=== PATIENT | male | born 1960 | race Caucasian/White ===

== ENCOUNTER 2021-06-18 19:20 | Inpatient (IN) | payer MEDICAID ==
[~2021-06-18] VITALS: Ht 170.2 cm; Wt 90.9 kg
[2021-06-18 22:26] LABS: BASOPHILS % (AUTO) 0.1 % (0.0-2.0); EOSINOPHILS % (AUTO) 0 % (1.0-6.0); HEMATOCRIT 44.2 % (41-53); HEMOGLOBIN 15.4 g/dL (13.5-17.5); LYMPHOCYTES % (AUTO) 8.8 % (22.0-44.0); MEAN CORPUSCULAR HEMOGLOBIN 29.7 pg (26.0-34.0); MEAN CORPUSCULAR HGB CONC 34.9 G/dL (31.0-37.0); MEAN CORPUSCULAR VOLUME 85 fL (80-100); MONOCYTES # (AUTO) 0.3 K/uL (0.1-1.0); MONOCYTES % (AUTO) 2.8 % (2.0-9.0); NEUTROPHILS # (AUTO) 10.1 K/uL (1.8-7.7); PLATELET COUNT (AUTO) 192 K/uL (150-450); RED BLOOD CELL COUNT(AUTO) 5.19 MIL/uL (4.50-5.90); RED CELL DISTRIBUTION WIDTH 14.2 % (11.5-14.5)
[2021-06-18 22:36] LABS: ANION GAP 8 mmol/L (8-16); CARBON DIOXIDE 26 mmol/L (22-29); CHLORIDE 105 mmol/L (98-107); CREATININE 0.85 mg/dL (0.60-1.30); GLOMERULAR FILTR. RATE CALC > 60 mL/min (>60); GLUCOSE,RANDOM 153 mg/dL (70-110); POTASSIUM 4.1 mmol/L (3.5-5.1); SODIUM SERUM 139 mmol/L (136-145); UREA NITROGEN, BLOOD 13 mg/dL (7-18)
[2021-06-18] MEDS ORDERED: MECLIZINE HCL 25 MG TABLET PO ONE (22:45)
[2021-06-18] MEDS ORDERED: ONDANSETRON HCL 4 MG TABLET PO ONE (22:45)
[2021-06-18] MEDS ORDERED: ACETAMINOPHEN 500 MG TABLET PO ONE (22:45)
[2021-06-18 22:47] LABS: ALANINE AMINOTRANSFERASE 43 U/L (12-78); ALBUMIN 3.9 g/dL (3.4-5.0); ALKALINE PHOSPHATASE 95 U/L (46-116); ASPARTATE AMINOTRANSFERASE 18 U/L (15-37); BILIRUBIN,TOTAL 0.4 mg/dL (0.1-1.0); TOTAL PROTEIN, SERUM 7.8 g/dL (6.4-8.2)
[2021-06-18 22:54] LABS: NEUTROPHILS % (AUTO) 88.3 % (40.0-70.0)
[2021-06-18] MEDS ORDERED: SODIUM CHLORIDE 0.9% 1,000 ML IV ONE (23:00)
[2021-06-18] MEDS ORDERED: METOPROLOL TARTRATE 5 MG/5 ML VIAL IVP ONE (23:00)
[2021-06-18] MEDS ORDERED: ASPIRIN 325 MG TABLET PO ONE (23:00)
[2021-06-18] MEDS ORDERED: NITROGLYCERIN 2% (1 GM=INCH) PACKET TP ONE (23:00)
[2021-06-18 23:03] LABS: LIPASE 57 U/L (73-393)
[2021-06-18 23:39] LABS: D-DIMER 0.19 mg/L FEU (0.00-0.50); PROTHROMBIN TIME 10.9 SEC (9.4-11.6)
[2021-06-18] MEDS ORDERED: ONDANSETRON HCL 4 MG/2 ML VIAL IVP PRN (23:45)
[2021-06-18] MEDS ORDERED: ATORVASTATIN CALCIUM 20 MG TABLET PO SCH (23:45)
[2021-06-18] MEDS ORDERED: MORPHINE SULFATE 2 MG/ML SYRINGE IVP PRN (23:45)
[2021-06-18] MEDS ORDERED: ACETAMINOPHEN 325 MG TABLET PO PRN (23:45)
[2021-06-18] MEDS: HEPARIN SODIUM,PORCINE 5,000 UNITS/ML VIAL SQ SCH (23:52)
[2021-06-19 00:26] LABS: COVID AG,FIA SOURCE NASOPHARYNGEAL
[2021-06-19 02:04] LABS: CHOL/HDL RATIO 4.6 (4.2-7.3)
[2021-06-19] MEDS: HEPARIN SODIUM,PORCINE 5,000 UNITS/ML VIAL SQ SCH (08:51)
[2021-06-19] MEDS ORDERED: FAMOTIDINE 20 MG TABLET PO SCH (09:00)
[2021-06-19] MEDS ORDERED: METOPROLOL SUCCINATE 25 MG ER TABLET PO SCH ×2 (09:00→11:00)
[2021-06-19] MEDS ORDERED: ASPIRIN 81 MG CHEWABLE TABLET PO SCH (09:00)
[2021-06-19] MEDS ORDERED: DOCUSATE SODIUM 100 MG CAPSULE PO SCH (09:00)
[2021-06-19 11:50] VITALS: BP 158/98
[2021-06-19] MEDS ORDERED: ATOR20TA65 PO (13:46)
[2021-06-19] MEDS ORDERED: METO25XL PO (13:46)
[2021-06-19] MEDS ORDERED: ASPI81 PO (13:46)
== END 2021-06-19 14:30 | disposition home or self-care (01) | DRG 199 ==
LOC: EMS 19:22 → EDBD 19:22 → 5S 06-19 11:30
PROVIDERS: ADMIT Internal Medicine; ATTEND Internal Medicine
DX: I16.0 Hypertensive urgency (principal); E66.9 Obesity, unspecified; Z79.82 Long term (current) use of aspirin; Z79.899 Other long term (current) drug therapy; Z86.16 Personal history of COVID-19; Z68.31 Body mass index [BMI] 31.0-31.9, adult
CPT/HCPCS: 71045; 80053; 80061; 83690; 84484; 85025; 85379; 85610; 85730; 93005; 93306; 99291; G0480; J1644; J3490; J7030; Q0162; 36415-L1; 36415-TC